=== PATIENT | female | born 1945 | race Caucasian/White ===

== ENCOUNTER → 2020-07-24 10:44 | Outpatient (CLI) | payer MEDICARE, OTHER, SELFPAY ==
[2020-07-23 13:58] VITALS: BMI 27.4
--- NOTE | 2020-07-24 | IMM_PTH ---
PATIENT: ARIELA SOLIS LOC: [facility] U#:[id number] AGE/SX: 79/F ROOM: RE07/24/[address]: Dr. Nico Oh MD : 1945 BED: DIS: SPEC #: [id number] RECD: 07/27/20 14:02 STATUS: ZEKE REQ #: [id number] ALBINO: 07/24/20 00:[address]: Nico Oh DEPT: IMMUNOHISTOCHEMISTRY RECD BY: Rosie Iniguez ENTERED: 07/27/20 14:04 SP TYPE: IMMUNO OTHR DR: Dr. Jorge A Lott MD Tissues: Right breast, NOS Procedures: CALPONIN-1 (add) CK5-6 (add) CK8 (add) E-CAD (add) HER2 FILEMON (add) KI-67 (add) P53 (add) DC (add) P40 (add) ER (initial) PHYSICIAN & INSTITUTION [place] [id number] SPECIMEN INFORMATION: Tissue Source: Right breast, 1 o'clock posterior depth microcalcifications, stereotactic core biopsy Clinical Info: Right breast, 1 o'clock posterior depth microcalcifications Specimen Number: [id number] #2 CPT code: 71968, 82269 x6, 13292 x3 METHODOLOGY: Deparaffinized sections of prefer/formalin-fixed tissue or PAP/DQ stained slides are incubated with monoclonal/polyclonal antibodies/oligonucleotide probes. Localization is made via biotin free immunoperoxidase method. Appropriate controls are performed and reacted as expected. Results on target cell population are indicated in the following table: RESULTS: ANTIBODY / CLONE RESULT Block 2 E-Cad (ECH-6) positive CK8 ([id number]) positive Calponin-1 (AC500A) negative * CK5-6 (D5 & 1684) negative * P40 (BC28) negative * P53 (DO-7) positive Ki-67 (30-9) positive, low *?Positive in the area of ductal carcinoma in situ. MORPHOMETRIC ANALYSIS ER (clone 6F11) >95%, strong intensity DC (clone 16/1E2) 0% Her-2Neu (clone CB11) 0 The prognostic test for HER2 is performed on formalin-fixed paraffin embedded tissue. A 3+ (positive) staining pattern is defined as intense, homogeneous, complete, circumferential membranous staining in >10% of contiguous tumor cells. A similar weak (2+) staining pattern is interpreted as equivocal. XANDER follow-up testing is recommended for all equivocal cases. Positivity/negativity for ER/DC is reported if > or < 1% of the tumor cells are immuno- reactive, respectively. The ASCO/CAP criteria is used for scoring. Reference: Journal of Clinical Oncology, 2013; 31:9418-9298 & 2010; 16:3563-3734. Duration of fixation: 56 Hrs; Sample Adequate: Yes. These assays have not been validated on decalcified tissues. Results should be interpreted with caution given the likelihood of false negativity on decalcified specimens. These tests were developed and their performance characteristics determined by [facility]. They may not have been cleared or approved by the U.S. Food and Drug Administration. The FDA has determined that such clearance or approval is not necessary. The above immunohistochemical/dualISH markers are ordered and reviewed by the Pathologist. 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 Positive for estrogen receptors (favorable prognostic indicator). Negative for progesterone receptors (unfavorable prognostic indicator). Negative for overexpression of RNG1jww. SJ:ze 07/28/20
--- NOTE | 2020-07-24 11:30 | BRBX_PTH ---
PATIENT: ARIELA SOLIS LOC: [facility] U#:[id number] AGE/SX: 79/F ROOM: RE07/24/[address]: Dr. Nico Oh MD : 1945 BED: DIS: SPEC #: [id number] RECD: 07/24/20 13:06 STATUS: ZEKE JACKIE #: [id number] ALBINO: 07/24/20 11:[address]: Nico Oh DEPT: SURGICAL PATHOLOGY RECD BY: Hugo Quintana ENTERED: 07/24/20 13:07 SP TYPE: BREAST BX OTHR DR: Dr. Jogre A Lott MD Tissues: Right breast, NOS Procedures: Surgery Specimen Level IV HEADER OPERATION: Right stereotactic breast biopsy PRE-OP DIAGNOSIS: Right breast 1 o'clock posterior depth microcalcifications TISSUE SUBMITTED: Right breast core tissue ISCHEMIC TIME: 3 minutes FIXATION TIME: 56 hours MICROSCOPIC DIAGNOSIS Right breast, 1 o'clock posterior depth microcalcifications, stereotactic core biopsy: Invasive ductal carcinoma, nuclear grade 1 (0.7 cm in greatest length). Focal ductal carcinoma in situ. See comment. JASPREET:ze 07/27/20 COMMENT Immunohistochemistry ([id number]) supports the above diagnosis. Ductal carcinoma in situ shows solid and cribriform pattern, nuclear grade 2/3 and focal microcalcifications. Ductal carcinoma in situ comprise about 30% of the total tumor volume. ER/HI/Hwk9mpq studies are being performed on sections of tumor and the results from this study will be reported separately ([id number]). MICROSCOPIC DESCRIPTION Slides are reviewed. GROSS DESCRIPTION Received in fixative is one container labeled with the patient name and designated right breast. The specimen consists of multiple elongated fragments of solano-yellow fibroadipose tissue that in aggregate measure 7.5 x 3 x 0.3 cm. The entire specimen is submitted in three cassettes. / JASPREET:ze 07/24/20 TC:0 CPT: 23426
--- NOTE | 2020-07-24 11:59 | PCM.OPRPT ---
Problem List (1) Microcalcification of right breast on mammogram Status: Acute Report of Operation Date of Procedure: 07/24/20 Pre-Operative Diagnosis: Microcalcifications right breast Post-Operative Diagnosis: Same Surgery/Procedure Performed:: Stereotactic right breast biopsy Type of Anesthesia:: Local Description of Procedure: Patient was brought into the mammography unit. Placed prone on the fissure table right breast was brought down through the opening. Cc view was obtained. Microcalcifications were identified. ?10 degrees views were obtained. I targeted on the microcalcifications. I prepped the breast with Betadine. I injected local. Skin rodger was made. Needle was placed in the prefire position 2 more stereo views were obtained showing the microcalcifications to be appropriately targeted. I fired the needle took 360 degree circumferential biopsies. X-rayed my specimen microcalcifications were present. Back the needle off 7 mm and placed a Gelfoam titanium clip. Needle was removed clip was identified on subsequent film. Steri-Strips were applied. Sterile dressings were applied. The patient tolerated the procedure well. Standard mammogram was obtained on the right side. Of interest she was due to get a left-sided mammogram which will be obtained today at the same time. - Admit VTE Documentation VTE Present on Admission: No VTE Mechan Device Prophylaxis: None VTE Pharm Prophylaxis ordered?: No Reason prophylaxis not ordered:: Treatment Not Indicated [id number]: [id number] [facility]
--- NOTE | 2020-07-24 12:03 | BI_ITS ---
MAMMOGRAPHY - BILATERAL SCREENING REASON FOR EXAM: Female, 74 years old. Routine annual screening examination. PERTINENT HISTORY: Non-contributory. Remote bilateral excisional breast biopsies. TECHNIQUE: Digital bilateral breast carri (3D mammographic acquisition) in the CC and MLO projections. 2-D mediolateral oblique (MLO) and craniocaudad (CC) views of both breasts were obtained. CAD: Full Field Digital Mammography with Computer Added Detection was performed. COMPARISON: Comparison is made with prior abdomen examination dated 05/07/2019. FINDINGS: Breast Composition: The breasts are heterogeneously dense, which may obscure small masses. There are no dominant masses or suspicious calcifications. Stable small bilateral benign-appearing axillary lymph nodes. No other significant abnormalities are identified. There has been no significant change since the prior study. BI/SCREEN MAMM (CAD) W/CARRI UNI L IMPRESSION: Stable bilateral screening mammogram. Yearly follow-up mammogram recommended. (A) ASSESSMENT CATEGORY: BIRADS Category 2: Benign. A letter regarding these results will be sent to the patient by the facility within 30 days. Approximately 10% of breast cancers are not detected by mammography. A normal mammogram should not delay biopsy of a clinically suspicious abnormality. [id number] Electronically Signed: Milton Yañez, at 14:13 EST , Service support ,
== END ==
PROVIDERS: PCP Internal Medicine; Referring Provider Surgery; Visit Provider Surgery
DX: D05.11 Intraductal carcinoma in situ of right breast (principal); Z12.31 Encounter for screening mammogram for malignant neoplasm of breast
CPT/HCPCS: 19081; 77063; 77067; 88305; 88341; 88342; J7050; A4648

== ENCOUNTER 2020-08-28 08:57 | Day surgery (SDC) | payer MEDICARE, OTHER, SELFPAY ==
[2020-08-28] VITALS (7 sets, daily range): BP systolic 138–173; BP diastolic 63–76; PULSE 58–70; RESP 16; TEMP 36.3–36.6; O2SAT 97–98; BMI 27.7
--- NOTE | 2020-08-28 | IMM_PTH ---
PATIENT: ARIELA SOLIS LOC: [facility] [place] U#:[id number] AGE/SX: 74/F ROOM: RE08/28/[address]: Dr. Nico Oh MD : 1945 BED: DIS: 08/28/2020 SPEC #: [id number] RECD: 09/02/20 13:18 STATUS: ZEKE REQ #: [id number] ALBINO: 08/28/20 00:[address]: Nico Oh DEPT: IMMUNOHISTOCHEMISTRY RECD BY: Rosie Iniguez ENTERED: 09/02/20 13:21 SP TYPE: IMMUNO OTHR DR: Dr. Jorge A Lott MD Tissues: A - Right breast, NOS C - Axillary lymph node, NOS D - Axillary lymph node, NOS Procedures: Calponin-1(initial) CALPONIN-1 (add) CK7 (add) Pankeratin (initial) Pankeratin (add) P40 (add) PHYSICIAN & [place] [id number] SPECIMEN INFORMATION: Tissue Source: A - Right breast lumpectomy, C - Right breast sentinel lymph node, D - Lymph node tissue right breast Clinical Info: Invasive ductal carcinoma right breast Specimen Number: [id number] A4-A7, C1, D1-D3 CPT code: 79145 x3, 53177 x13 METHODOLOGY: Deparaffinized sections of prefer/formalin-fixed tissue or PAP/DQ stained slides are incubated with monoclonal/polyclonal antibodies/oligonucleotide probes. Localization is made via biotin free immunoperoxidase method. Appropriate controls are performed and reacted as expected. Results on target cell population are indicated in the following table: RESULTS: ANTIBODY / CLONE RESULT Block A4 P40 (BC28) negative * Calponin-1 (UL905B) negative * Block A5 P40 (BC28) negative Calponin-1 (PM315D) negative Block A6 P40 (BC28) positive Calponin-1 (JQ120Y) positive Block A7 P40 (BC28) positive Calponin-1 (UE146M) positive Block C1 AE1-3 (AE1/AE3/PCK26) negative CK7 (OV-TL12/30) negative Block D1 AE1-3 (AE1/AE3/PCK26) negative CK7 (OV-TL12/30) negative Block D2 AE1-3 (AE1/AE3/PCK26) negative CK7 (OV-TL12/30) negative Block D3 AE1-3 (AE1/AE3/PCK26) negative CK7 (OV-TL12/30) negative *?Positive in the area of ductal carcinoma in situ and adenosis with atypia. These tests were developed and their performance characteristics determined by [facility]. They may not have been cleared or approved by the U.S. Food and Drug Administration. The FDA has determined that such clearance or approval is not necessary. The above immunohistochemical/dualISH markers are ordered and reviewed by the Pathologist. INTERPRETATION: A. Right breast, lumpectomy: Invasive ductal carcinoma. Ductal carcinoma in situ. Adenosis with atypia. C. [place] lymph node, biopsy: One lymph node, negative for metastatic carcinoma. D. Lymph node tissue, biopsy: Two out of two lymph nodes, negative for metastatic carcinoma. SJ:ze 09/03/20
--- NOTE | 2020-08-28 | BRBX_PTH ---
PATIENT: ARIELA SOLIS LOC: [facility] [place] U#:[id number] AGE/SX: 74/F ROOM: RE08/28/[address]: Dr. Nico Oh MD : 1945 BED: DIS: 08/28/2020 SPEC #: [id number] RECD: 08/28/20 12:08 STATUS: ZEKE REMendy #: [id number] ALBINO: 08/28/20 00:[address]: Nico Oh DEPT: SURGICAL PATHOLOGY RECD BY: Rosie Iniguez ENTERED: 08/28/20 13:55 SP TYPE: BREAST BX OTHR DR: Dr. Jorge A Lott MD Tissues: A - Right breast, NOS B - Right breast, NOS C - LYMPH NODE BIOPSY D - LYMPH NODE BIOPSY Procedures: Frozen Section (charge) Frozen Section Add'l ([facility]) Surgery Specimen Level IV Surgery Specimen Level V HEADER OPERATION: Stereotactic wire localization lumpectomy with sentinel lymph node biopsy PRE-OP DIAGNOSIS: Invasive ductal carcinoma right breast TISSUE SUBMITTED: A - Right beast lumpectomy, single long suture - superior, wire and skin - anterior, double long - lateral, B - Additional right breast tissue, double long suture - closest margin to breast tumor where guidewire is coming out, C - Right breast sentinel lymph node, FS at 1214, D - Lymph node tissue right breast, FS at 1229 FROZEN SECTION DIAGNOSIS C. [place] lymph node, biopsy: One lymph node, negative for metastatic carcinoma. D. Lymph node tissue, biopsy: Two out of two lymph nodes, negative for metastatic carcinoma. JASPREET:ze 08/28/20 MICROSCOPIC DIAGNOSIS A. Right breast, lumpectomy with needle localization: Invasive ductal carcinoma. Ductal carcinoma in situ. Adenosis with atypia. See cancer summary in the comment section. B. Additional right breast tissue: Adenosis and dense fibrosis. Focal microcalcifications. Negative for carcinoma. C. [place] lymph node, biopsy: One lymph node, negative for metastatic carcinoma. D. Lymph node tissue, biopsy: Two out of two lymph nodes, negative for metastatic carcinoma. JASPREET:ze 09/02/20 COMMENT BREAST CANCER SUMMARY Procedure - excision (lumpectomy with wire-guided localization) Specimen laterality - right Invasive tumor: Tumor site - 1 o'clock as per clinical information Tumor size - greatest dimension 0.7 cm. - Additional dimension - 0.5 x 0.5 cm Grossly, the tumor measures 1.5 cm in greatest dimension and consists of invasive carcinoma, ductal carcinoma in situ, adenosis with atypia and previous biopsy site. Histologic type - invasive ductal carcinoma, not otherwise specified. Histologic grade ([place] grade): Glandular/tubular differentiation score - 1 Nuclear pleomorphism score - 1 Mitotic count score - 1 Overall grade - grade 1 (score of 3) Tumor focality - single focus of invasive carcinoma. Ductal Carcinoma In Situ - present Positive for extensive intraductal component (EIC). Size (extent) of DCIS - DCIS comprise about 50% of the total tumor volume. Number of blocks with DCIS - 3 Number of blocks examined - 22 (including specimens A & B) Architecture pattern - solid and cribriform Nuclear grade - grade 2 (intermediate) Necrosis - present, central (expansive comedo necrosis) Lobular carcinoma in situ - not identified Tumor extension: Skin - Skin is present and free of tumor (gross only). Nipple - not applicable Skeletal muscle - no skeletal muscle is present. Margins - Ductal carcinoma in situ and invasive carcinoma are 0.8 cm away from the closest inferior margin. Regional Lymph Nodes: Total number of lymph nodes examined - 3 Number of sentinel lymph nodes examined - 1 Number of lymph nodes with macrometastases, micrometastases or isolated tumor cells - 0 Treatment effect - no known presurgical therapy. Lymphvascular invasion - not identified Additional Pathologic Findings - - extensive adenosis with focal atypia. - Focal dense fibrosis. - Changes consistent with previous biopsy site. Ancillary Studies: Previously performed on same tumor ([id number] / [id number]) ER: positive (>95%, strong intensity) ND: negative (0%) Eph0cnn: negative (0) Microcalcifications - present in ductal carcinoma in situ and non-neoplastic tissue. Clinical History - microcalcifications Pathologic Stage: pT1b pN0 pMx The above summary is in compliance with [employer] (CAP) Cancer Protocols Checklist and [place] [employer] Committee on Cancer (AJCC), Staging Manual, 8th Ed. Please make reference to previous specimen ([id number]) right breast, 1 o'clock posterior depth microcalcifications, stereotactic core biopsy with diagnosis of invasive ductal carcinoma and focal ductal carcinoma in situ. MICROSCOPIC DESCRIPTION Slides are reviewed. GROSS DESCRIPTION A - Received fresh for intraoperative consultation labeled with the patient's name and designated lumpectomy right breast with wire. The specimen consists of a piece of fibroadipose tissue with needle localization measuring 9.5 x 6 x 3.5 cm. A piece of skin is also noted measuring 1 x 0.3 cm. The specimen is oriented as follows: double long - lateral, single long - superior. The specimen is inked as follows: anterior - yellow, posterior - black, superior - blue, inferior - green, medial - red and lateral - orange. Serial sections reveal a solano, indurated tumor mass measuring 1.5 x 1 x 1 cm. This mass is 1 cm away from the closest inferior margin. This information is conveyed to the surgeon intraoperatively. Sections of the rest of the specimen reveal solano-yellow adipose cut surfaces mixed with solano-white fibrous areas. Vocational Aide sections are submitted in 12 cassettes as follows: 1 - perpendicular medial and lateral margins, 2 - perpendicular anterior, posterior and superior margins, 3-7 - tumor with closest inferior margin, 8-12 - Vocational Aide sections adjacent to and away from the tumor. Sections will be submitted after additional fixation. / SJ:ze 08/31/20 B - Received in fixative is one container labeled with the patient's name and designated additional right breast tissue. The specimen consists of a piece of fibroadipose tissue measuring 7 x 6 x 2 cm. The specimen is oriented as follows: double suture - closest margin to breast tumor where guidewire is coming out. This margin is inked black. Opposite margin is inked blue. Sections do not reveal any mass lesion and reveal yellow adipose cut surfaces mixed with fibrous areas. Vocational Aide sections are submitted in ten cassettes. Sections will be submitted after additional fixation. / : 08/31/20 C - Received fresh for frozen section diagnosis labeled with the patient's name is a specimen designated right breast sentinel lymph node. The specimen consists of a piece of solano-yellow adipose tissue measuring 2 x 2 x 0.7 cm. One nodule consistent with lymph node is identified. The lymph node measures 1 cm in greatest dimension. The lymph node is submitted in entirety for frozen section diagnosis in one cassette. / : 08/28/20 D - Received fresh for frozen section diagnosis labeled with the patient's name is a specimen designated lymph node tissue right breast. The specimen consists of two pieces of solano-yellow adipose tissue measuring 3 x 3 x 2 cm and 3 x 2 x 1 cm. Two lymph nodes are identified measuring 1.5 and 2.5 cm in greatest dimension. The lymph nodes are submitted in entirety for frozen section diagnosis as follows: 1??one bisected lymph node, 2 & 3 - one bisected lymph node. / : 08/28/20 TC:0 CPT: 42369 x3, 15146, 04592 x2, 23240 x2, 15130 ADDENDUM ADDENDUM ADDENDUM ADDENDUM ADDENDUM ADDENDUM ADDENDUM ADDENDUM 09/30/2020 10:26 ADDENDUM 09/30/2020 10:26 ADDENDUM 09/30/2020 10:26 ADDENDUM 09/30/2020 10:26 ADDENDUM 09/30/2020 10:26 An order for Oncotype testing was received from Dr. Mar. This necessitated case review, block and slide selection by pathologist at [facility]. Breast Cancer Recurrence Score = 22 Results of the complete Oncotype testing ([employer] report) are viewable in EMR under: Reports - Pathology - Lab Pathology Report, Scanned.
--- NOTE | 2020-08-28 08:00 | HP_ITS ---
Intake Intake Visit Reasons: ONE WEEK F/U RIGHT BREAST BIOPSY 07/24 Chief Complaint: discuss surgery Margarine Maker Required: No Is patient in pain?: No Allergies No Known Allergies Allergy (Verified 08/18/20 10:45) Medications denosumab 60 mg/mL subcutaneous syringe 60 mg SC [id number] 07/23/20 [History Confirmed 07/31/20] levothyroxine 88 mcg tablet 88 mcg PO DAILY 07/23/20 [History Confirmed 07/31/20] simvastatin 10 mg tablet 10 mg PO DAILY 07/23/20 [History Confirmed 07/31/20] Is last menstrual period known: No Post menopausal: Yes Patient : No PFSH Medical History Invasive ductal carcinoma of right breast (Acute) Abnormal mammogram (Acute) Degenerative joint disease (Acute) Hyperlipemia (Acute) Arthritis (Acute) Hypothyroidism (Acute) Thyroid disease (Acute) Surgical History Hx of right breast biopsy (Acute) Hx of colonoscopy (Acute) Hx of tubal ligation (Acute) Hx of appendectomy (Acute) Hx of tonsillectomy (Acute) S/P breast biopsy (Acute) Family History Mother Diabetes Hypertension Thyroid disorder Social History (Updated 08/18/20 @ 11:[address] Nico Oh MD) Smoking Status: Never smoker second hand exposure: No alcohol intake: never substance use type: does not use caffeine: Yes what type of physical activity do you participate in: aerobics frequency: 3-4 times per week HPI HPI Surgical H&P: Yes HPI: ARIELA SOLIS, is a 74 F who presents to the office today for Follow-up from a right stereotactic breast biopsy completed at [facility] on 07/24/2020. Patient underwent a right stereotactic breast biopsy for microcalcifications located at the 1 o'clock position. This showed invasive ductal carcinoma nuclear grade 1. It was estrogen receptor positive HER-2/noreen negative. She has seen Dr. Cutler her oncology doctor and would like to discuss her surgical options. ROS General General: No weight change, appetite, fatigue, colon cancer, breast cancer or weakness HEENT HEENT: No difficulty swallowing, eye injury, eye surgery, swollen glands or hoarseness Endo Endocrine: Yes thyroid disease; no diabetes mellitus, thyroid cancer, Hair loss, heat intolerance or cold intolerance Skin Skin: No rash or changing moles Breast Breast: No nipple discharge Musc Musculoskeletal: Yes arthritis; no back problems, rheumatoid arthritis, gout or joint pain Cardio Cardiovascular: No murmur, pacemaker, heart disease, atrial fibrillation, high blood pressure, heart attack, heart stent, palpitations, shortness of breat with exertion or chest pain Psych Psychiatric: No depression, anxiety or hearing voices Resp Respiratory: No shortness of breath, No sleep apnea, No cough, No COPD, No asthma, No emphysema, No wheezing Gastro Gastrointestinal: No abdominal pain, No nausea or vomiting, No diarrhea, No constipation, No blood in stool, No acid reflux, No hemorrhoids, No ulcers, No gallbladder problem, No black,tarry stools Aldo Hematologic: No blood thinners, No blood disorders, No bleeding, No anemia, No blood clots Neuro Neurologic: No system reviewed and no additional complaints, except as docu, No as per HPI, No abnormal walking, No abnormal hearing, No abnormal movements, No abnormal speech, No behavioral changes, No burning sensations, No confusion, No seizure-like activity, No unsteadiness, No dizziness, No localized weakness, No frequent falls, No headache(s), No lack of coordination, No loss of vision, No memory loss, No numbness, No other visual disturbances, No radiating pain, No restless legs, No sensory deficit, No fainting, No tingling, No tremor(s), No weakness, No other Exam Const General: no acute distress, well developed, well hydrated Orientation: oriented to person, oriented to place, oriented to time [facility] Head: normocephalic, atraumatic Ears: external ears normal Mouth: moist mucous membranes Eyes Sclera: sclerae normal Pupils: normal by confrontation Neck Neck: no lymphadenopathy noted Neck mass: No Thyroid: thyroid normal, symmetrical Chest Chest palpation & inspection: normal inspection of the chest Breast inspection: normal inspection of the breasts Breast Palpation: No nipple discharge Other: Palpation of the right breast reveals Biopsy site with minimal bruising no signs of cellulitis. Palpation of the left breast reveals No hard palpable abnormalities. Axillary exam demonstrates no suspicious masses in either the left or right axilla. Resp Effort & Inspection: normal respiratory effort Auscultation: clear to auscultation bilaterally Percussion: percussion normal Cardio Rate: regular rate Rhythm: regular rhythm Heart Sounds: no murmurs GI Palpation: soft, no hepatosplenomegaly, no masses, nontender Rectal Exam: other Other: Rectal exam deferred. Extrem General: normal to inspection, no clubbing, cyanosis or edema Assessment & Plan Problems 1. Invasive ductal carcinoma of right breast C50.911 Plan I have given the patient options for initial surgical treatment. Options are the following: lumpectomy followed by radiation therapy vs. mastectomy vs. mastectomy followed by immediate reconstruction. I have described the procedures to the patient. I have described the advantages and disadvantages of the options, but I have told the patient that among the options, the survival rate for breast cancer is the same. I have told the patient that with all the surgeries that a sentinel lymph node biopsy is required. I have described the procedure of sentinel lymph node biopsy to the patient. I have told the patient that if the biopsy is positive for metastatic disease, then a full axillary lymph node dissection is required. I have told the patient that adjuvant chemotherapy will be required should the lymph nodes reveal metastatic disease. Also, a full lymph node dissection will increase the risk for lymphedema, especially if there are 4 or more lymph nodes positive for metastatic disease and radiation to the axilla is also required. I have told the patient the risks of surgery, including but not limited to: infection, bleeding, scar tissue, seroma and persistent seroma, lymph leak, injury to any blood vessels, injury to any nerves (particularly the long thoracic, the thoracodorsal, and the second intercostal brachial and the resultant sequelae), lymphedema, cosmetic deformity, dysesthesias, wound infections, further surgery (especially if margins are not clear), complications of anesthesia, etc. the patient understands. The patient will think about the options and discuss it further with the family. The patient will contact me in the next few days when she decides what the patient wishes to do. I have answered all the patient?s questions at this point to her satisfaction and she has no further questions. Patient is going to undergo a stereotactic localization sentinel lymph node biopsy with lumpectomy. Coding Level of Care Code Off vis,est,level 3 Diagnoses Invasive ductal carcinoma of right breast C50.911 COVID (Procedure Consent) Procedure Criteria Procedure Criteria: Yes Elective The surgeon/proceduralist and patient have discussed in detail the risk of exposure to and/or potential harm posed by the COVID-19 virus with having a surgery/procedure at this time versus the risk of? delaying the surgery/procedure. It is not possible to know either the risk of delaying the surgery or procedure or chance of getting an infection with perfect accuracy, but a joint decision was made between the patient and the surgeon/proceduralist ?to proceed at this time with the scheduled surgery/procedure as indicated on the consent form. I have re-examined the patient. There are no clinical changes since date of exam.
--- NOTE | 2020-08-28 09:00 | NM_ITS ---
PROCEDURE: NUCLEAR MEDICINE Injection [place] Node - RIGHT breast(s). REASON FOR EXAM: Female, 74 years old. Right breast cancer. TECHNIQUE: [place] node localization using radionuclide methods of the RIGHT breast(s) was performed following subcutaneous administration of 1.1 mCi of of sulfur colloid Tc-99m. FINDINGS: 1.1 mCi of technetium labeled sulfur colloid was injected subcutaneously in 4 equal aliquots in the periareolar region. NM/Lymph Node Injection Only IMPRESSION: Subcutaneous injection of 1.1 mCi of technetium labeled sulfur colloid in the periareolar region. Electronically Signed: Milton Yañez, at 11:18 EST , Service support ,
[2020-08-28] MEDS: Lactated Ringers 1,000 ML 100 ML IV (09:33)
--- NOTE | 2020-08-28 10:00 | BI_ITS ---
SURGICAL BREAST SPECIMEN RADIOGRAPH CLINICAL: Document presence of tissue clip marker in biopsy specimen. FINDINGS: Specimen shows presence of tissue clip marker. Electronically Signed: Milton Yañez, at 12:46 EST , Service support , BI/Breast Biopsy Specimen
--- NOTE | 2020-08-28 10:58 | PCM.DC.BS ---
Discharge Diet: No Restrictions Discharge Activity: May Not Drive - for 2-3 days or while taking narcotic pain meds. May shower in (days): 1 Lifting Restrictions: 10 pounds for 1 week. Call your doctor if your incision/area has: Continuous Slow Oozing, Sudden Increased Bleeding Call your doctor if you observe: Fever of 101 or Higher Suture Line Care: Avoid Pulling/Pushing, Avoid Pinching/Bending Remove Dressing in (days):: 1 - Remove bulky dressing tomorrow. May leave any opsite dressing for 3-4 days. Keep dressing in place until your follow-up appointment. Additional Dressing/Incision Instructions:: Remove bulky dressing tomorrow. May leave any opsite dressing for 3-4 days. Keep dressing in place until your follow-up appointment. Allergies/Adverse Reactions: Allergies No Known Allergies Allergy (Verified 08/25/20 10:13) Medications to take at Discharge denosumab 60 mg/mL subcutaneous syringe 60 mg SC [id number] 07/23/20 levothyroxine 88 mcg tablet 88 mcg PO DAILY 07/23/20 simvastatin 10 mg tablet 10 mg PO DAILY 07/23/20 Oxycodone HCl/Acetaminophen [Percocet 5/325] 1 - 2 tablet PO Q4H PRN PRN 6 Days #30 tablet 08/28/20 The following prescriptions were given: Oxycodone HCl/Acetaminophen [Percocet 5/325] 1 - 2 tablet PO Q4H PRN PRN 6 Days #30 tablet PRN Reason: Pain Transmission Status: Sent to [id number] Primary Care Physician: Jorge A Lott MD [Primary Care Provider] -
--- NOTE | 2020-08-28 10:59 | PCM.OPRPT ---
Problem List (1) Invasive ductal carcinoma of right breast Status: Acute Report of Operation Date of Procedure: 08/28/20 Pre-Operative Diagnosis: Invasive ductal right breast cancer Post-Operative Diagnosis: Same Surgery/Procedure Performed:: 1. Stereotactic wire localization of invasive right breast cancer. 2. Wire local lumpectomy right breast. 3. Injection of 5 cc of Lymphazurin blue. 4. Right breast sentinel lymph node biopsies Type of Anesthesia:: General Estimated Blood Loss (mL): <25 cc Description of Procedure: Patient was brought into the stereotactic unit placed in the prone position on the fissure table. Right breast was brought down through the opening. Cc view was obtained. Clip was identified. Posterior -15 degrees views were obtained. I targeted on the clip. I prepped the breast with Betadine. I injected 1% lidocaine plain. Kopan's wire was then placed in 2 more stereo view showing the clip to be adequately targeted with a needle. Needle was removed leaving the guidewire in place. 2 more mammographic views in the CC and the lateral position were obtained. Sterile dressings were applied and she was then transferred to the operating room. Under excellent endotracheal intubation I sterilely injected 5 cc of Lymphazurin blue circumareolar Alexandre around the nipple. The right breast and axilla was then sterilely prepped and draped in the usual fashion. I made an elliptical incision around the previous biopsy site and extended my incision both medially and laterally I dissected down and cut the guidewire into my specimen with electrocautery I was able to remove the specimen without difficulty. I sent to x-ray clip was identified. There was some nodularity on the lateral aspect of my biopsy cavity I remove this in place a suture on the tissue that was closest to the specimen that was removed. Electrocautery was used for good in the stasis. I packed the wound. I then went into the axilla injected local made an incision used electrocautery to get down to the clavipectoral fascia entered this identified a blue lymph node but it was weakly blue. None of the lymph nodes that I was I seen or palpating had any activity on the [place] counter. I removed 3 lymph nodes with the use of the harmonic dissector. I irrigated out the wound good in the stasis. I closed this with subcu of 2-0 Vicryl deep dermals with 3-0 Vicryl in a running 4-0 Monocryl. In the biopsy cavity it was irrigated out I closed it with subcu of 2-0 Vicryl deep dermals of 3-0 Vicryl and then a running 4-0 Monocryl. Dermabond was applied to both of these sterile dressings were applied and the patient tolerated the procedure well. Frozen sections on the lymph nodes confirm lymph nodes and were negative. - Admit VTE Documentation VTE Present on Admission: No VTE Mechan Device Prophylaxis: SCD's VTE Pharm Prophylaxis ordered?: No Reason prophylaxis not ordered:: Treatment Not Indicated [id number]: [id number] Partial mastectomy - +[id number], [id number], [id number]
[2020-08-28] MEDS: Cefazolin 2 GM in 0.9% Normal Saline 100 ML IV (11:25)
[2020-08-28] MEDS: Isosulfan Blue 1% 5 ML Vial (11:45)
[2020-08-28] MEDS: Bupivacaine Mpf 0.5% 30 ML VIAL (11:50)
== END 2020-08-28 15:07 | disposition home or self-care (01) ==
LOC: SDC 08:58 → AC 08:58
PROVIDERS: PCP Internal Medicine; Referring Provider Surgery; Visit Provider Surgery
PROC: 0HBV0ZZ Excision of Bilateral Breast, Open Approach (ICD-10-PCS; CPT 19302; principal; 2020-08-28 11:15)
DX: C50.911 Malignant neoplasm of unspecified site of right female breast (principal); Z17.0 Estrogen receptor positive status [ER+]
CPT/HCPCS: 00400; 19301; 38525; 19281; 38792; 76098; 87426; 88305; 88307; 88331; 88332; 88341; 88342; A9541; C9803; J7120; A4216; Q9968

== ENCOUNTER 2022-10-28 08:30 | Outpatient (RCR) | payer MEDICARE, OTHER, SELFPAY ==
--- NOTE | 2022-10-14 08:52 | HP.PTEVAL ---
Patient's Visit Information ARIELA SOLIS is a 76 year old F referred to Physical Therapy by Dr. Tam Molina MD with a diagnosis of R hip OA, bursitis. Date of Evaluation: 10/14/22 Physical Therapist: DARYL PiersonT, OCS, CSCS - Visit Plan Frequency: 3x /Week Duration: 4-6 Weeks Plan: 3x/week for 4-6 weeks around a vacation in two weeks. Please focus rollout and strtch R>L ITB and quad/psoas aggressively(pt stretching these at home), leg pullNWB strength to R hip (needs more hip extension)progrressing to WB as tolerated. Work on step length in gait. TENS R hip lateral if needed. - Subjective R hip has bone spur and OA. It feels like it locks up at times and feels weak going up two steps with anything in hand. Was limping and painful for a while. It has been hurting for several months on and off. Not sure why it started. Improving lately. Gave meds and just picked it up yesterday.Stiff and sore if sits too long. Pain and stiffness is lateral at R hip. Sleep is not interrupted, sleeps all over. Usually on side. Not employed. spends day: volunteering and housework adn ex classes and walking when whether good. She has not stopped any of them. Will class is not a problem nor is ellitical, main problems no strength up steps. aS well as stiffness if sits too long. To [place] in about two weeks. - Pain R hip Pain Intensity (Out of 10): 0 Pain Intensity Range: 4, 7 - Objective Gait is hunched slightly adn avoids hip extension on both hips. I. Trasnfers I bed and chair. steps reciprocal with rail. Weakness on R descending. Tender over r GT. reflexes 2/3 patella and achilles. Sensation WNL to gross light touch in LE. strength is 4- hip flexiona dn rotations, 3+ abd and extension B hips. knees and ankles arre 4+. AROM B hip extension barely neutral, flexion, abd, rotations symmetircal and WFL. - GALO, - FADDIR, - scour. LB aROM wFL. - Balance/Special Test Scores Lower Extremity Functional Score: 52 - Goals Goal 1:: 5 degrees R hip extension without pain Goal Time Frame: 4-6 Weeks Goal 2:: Walk without hunching over Goal Time Frame: 4-6 Weeks Goal 3:: Pain in hip with stagnant and steps 1/10 at worst and 90% better Goal Time Frame: 4-6 Weeks Goal 4:: I management of condition Goal Time Frame: 4-6 Weeks Goal 5:: LEFS 56 Goal Time Frame: 4-6 Weeks - Rehabilitation Potential Physical Therapy Diagnosis: R hip OA and stiffness creating pain. Rehabilitation Potential: Fair - Anticipated Interventions Patient/Client Instruction: Educate patient on: Condition, Plan of Care For the Purpose of:: To decrease pain, To increase ROM, To improve muscle performance and motor function, To increase tolerance to activity/condition/position Therapeutic Exercise to Include: Strength training, Flexibilty training, Passive ROM, Active ROM For the Purpose of:: To decrease pain, To increase ROM, To improve muscle performance and motor function, To increase tolerance to activity/condition/position Manual Therapy Techniques to Include: Mobilization, Passive ROM, Soft tissue mobilization For the Purpose of:: To increase ROM, To improve nutrient delivery to tissue TENS: Yes Thermo therapy (hot pack): Yes For the Purpose of:: To decrease pain, To increase ROM, To improve nutrient delivery to tissue Thank you for the opportunity to evaluate your patient. For Medicare and Medicare HMO plans, please review the plan of care and approve it. It will need to be FAXED BACK to us at [phone] for Medicare purposes. For Medicare only, by signing this I certify the plan of care. Please let me know if there are questions or concerns regarding this plan of care. Physician Signature: Date:
--- NOTE | 2022-10-28 09:12 | HP.PTDCSUM ---
It has been my pleasure to treat ARIELA SOLIS referred by Dr. Tam Molina MD, with the diagnosis of R hip OA, bursitis for a total of 7 visit(s). Discharge Date: 10/28/22 Please see the following information for a summary of their discharge status. Subjective: Leaves on vacation to [facility] tomorrow. Hip is good. No pain for a while. Catchy thing is doing well. I will do my part at home R hip Pain Intensity (Out of 10): 0 % Improvement: 90 Objective/Function: 7 degrees hip extension R. Walking without antalgia or hunching today. Steps reciprocal without pain but whole body feels stiff. Doing well overall Goal 1:: 5 degrees R hip extension without pain Goal Progress: Goal Met Goal 2:: Walk without hunching over Goal Progress: Goal Met Goal 3:: Pain in hip with stagnant and steps 1/10 at worst and 90% better Goal Progress: Goal Met Goal 4:: I management of condition Goal Progress: Goal Met Goal 5:: LEFS 56 Goal Progress: Progressing Plan: d/c Discharge Comments: Pt to contact doctor if pain returns. If there are questions or concerns regarding this patient's physical therapy, please feel free to call me at [phone]. Thank you for the referral of this patient. Sincerely, Lev Strong, DPT, OCS, CSCS Balance/Gait/Functional tests - Balance/Special Test Scores Lower Extremity Functional Score: 62
== END 2022-10-28 10:24 | disposition home or self-care (01) ==
LOC: PT 08:30
PROVIDERS: PCP Internal Medicine; Referring Provider Specialist; Visit Provider Specialist
DX: M70.61 Trochanteric bursitis, right hip (principal); M16.11 Unilateral primary osteoarthritis, right hip
CPT/HCPCS: 97110; 97140; 97161; 97164

== ENCOUNTER 2024-06-13 09:20 | Emergency (ER) | payer MEDICARE, OTHER, SELFPAY ==
[2024-06-13 09:21] VITALS: BP 152/61; PULSE 62; RESP 14; TEMP 36.6; O2SAT 97; BMI 28.1
--- NOTE | 2024-06-13 09:51 | EDS_ITS ---
HPI History of Present Illness Chief Complaint: Chest Other Informant: patient Narrative Narrative: Presents to the ED after she reviewed my chart and saw her EKG noted left bundle branch block from her doctor's office 2 days ago. She has been have intermittent lightheaded symptoms for the last week. No chest pains no heaviness. No dyspnea. No recent vomiting or diarrhea. She had a PCP visit 2 days ago saw the practitioner. She states EKG was ordered and was told it was normal. She had labs drawn stating it was normal. This morning had transient numbness in both legs that resolved after walking. She has had no falls or syncopal episodes. No cardiac history. No cough. However she states she looked up left bundle branch block reporting it can cause lightheaded symptoms therefore came here. PFSH [facility] Medical History Invasive ductal carcinoma of right breast Abnormal mammogram Degenerative joint disease Hyperlipemia Arthritis Hypothyroidism Thyroid disease Home Medications ?Medication ?Instructions ?Recorded ?Last Taken ?Type denosumab 60 mg/mL subcutaneous 60 mg subcut [id number] 07/23/20 Unknown History syringe (Prolia) levothyroxine 88 mcg tablet 88 mcg PO DAILY 07/23/20 Unknown History (Synthroid) simvastatin 10 mg tablet 10 mg PO DAILY 07/23/20 Unknown History Allergy/AdvReac Type Severity Reaction Status Date / Time No Known Allergies Allergy Verified 06/13/24 09:20 Family History Mother Diabetes Hypertension Thyroid disorder Surgical History (Updated 09/29/20 @ 13:[address] Nico Oh MD) History of lymph node biopsy (~08/2020) History of lumpectomy of right breast (~08/2020) Hx of right breast biopsy Hx of colonoscopy Hx of tubal ligation Hx of appendectomy Hx of tonsillectomy S/P breast biopsy Social History (Updated 09/04/20 @ 09:[address] Nico Oh MD) Smoking Status: Never smoker second hand exposure: No alcohol intake: never substance use type: does not use caffeine: Yes what type of physical activity do you participate in: aerobics frequency: 3-4 times per week ROS ROS ED Constitutional Constitutional ED: Denies chills, fever(s) or sweats Eyes Eyes: Denies change in vision ENT ENT ED: Denies dysphagia or sore throat Cardiovascular Cardiovascular: Reports other Details: Intermittent lightheaded symptoms. ; Denies chest pain, leg edema, palpitations or racing heartbeat Respiratory/Chest Respiratory/Chest: Denies cough, dyspnea or dyspnea on exertion Gastrointestinal Gastrointestinal: Denies abdominal pain, diarrhea, nausea or vomiting Genitourinary Genitourinary ED: Denies dysuria, hematuria or urinary frequency Musculoskeletal Musculoskeletal: Denies back pain, extremity pain or neck pain Integumentary Denies rash or wounds Neurologic Neurologic: Reports paresthesias; Denies headache(s) or weakness EXAM Physical Exam Const Vital Signs: 06/13/24 09:21 06/13/24 09:42 06/13/24 11:30 Temperature 97.8 F 97.4 F L Temperature Source Temporal Oral Pulse Rate 62 62 Respiratory Rate 14 19 H Respiratory Effort Normal Non-Labored Blood Pressure 152/61 H 129/56 H Blood Pressure Mean 91 80 Pulse Ox 97 98 Oxygen Delivery Method Room Air Room Air 06/13/24 12:12 Temperature 98.1 F Temperature Source Pulse Rate 64 Respiratory Rate 17 Respiratory Effort Blood Pressure 136/54 H Blood Pressure Mean 81 Pulse Ox 100 Oxygen Delivery Method Positive well nourished and well developed General Appearance ED: well developed and NAD HEENT Reports moist mucous membranes normocephalic and atraumatic Eyes EOMs intact bilaterally and conjunctivae normal General Eye ED: Yes normal appearance of both eyes Neck no lymphadenopathy and supple General: Negative for tenderness Chest Wall Chest: Negative for tenderness Resp normal respiratory effort and normal air movement Effort and Inspection: symmetric chest movement; Negative for respiratory distr ess Cardio regular rate, regular rhythm and no murmurs Peripheral Pulses: pulses 2+ throughout GI normal to inspection, nondistended, normoactive bowel sounds and non-tender Palpation: Negative for guarding or rebound tenderness present Back/Spine no CVA tenderness and no thoracic nor lumbar tenderness Extremity normal to inspection General Extremety ED: Negative for edema or tenderness General Extremity: Negative for edema Neuro oriented x3 and no sensory deficits noted Sensorium / Orientation: awake and alert Skin no rashes or lesions noted and no wounds MDM MDM MDM Narrative Medical decision making narrative: Interventions / MDM: Differential diagnosis: Left bundle branch block, near syncope Diagnosis considered but do not suspect: N/A My EKG interpretation: Sinus, left bundle branch block normal rate. No ST or T wave changes. Imaging independently reviewed and interpreted by myself: 1 view chest x-ray no acute process. External documents reviewed: N/A Test considered but not ordered:N/A ED course: Patient asymptomatic left bundle branch block. Intermittent lightheaded symptoms. No focal neurological deficits. EKG confirms a left bundle branch block. Labs cardiac enzyme obtain along with chest x-ray. She denied recent vomiting or diarrhea. Labs are all stable with normal potassium. Creatinine 0.84 troponin 5. She is ambulated in department with no return of symptoms. I did discuss with her PCP Dr. Lott with her new left bundle branch block with no angina symptoms. Discussed patient was requesting stress test with her needed echocardiogram for her new left bundle branch block as an outpatient. He will follow-up with her. This was discussed with the patient. All questions were answered. Re-evaluation: stable Disposition discussed with patient/family/significant other: Patient Case discussed with consulting clinician: PCP This note was generated with [employer] dictation software. It may contain incorrect words, spelling, and punctuation that were not noted in checking the note before signing. Lab Data Attestation: I reviewed the patient's lab results. Labs: Laboratory Results - last 24 hr 06/13/24 10:00 WBC 4.9 RBC 4.47 Hgb 12.8 Hct 39.7 MCV 88.8 MCH 28.6 MCHC 32.2 RDW Std Deviation 45.0 H RDW Coeff of Sherita 13.8 Plt Count 172 MPV 9.1 Immature Gran % (Auto) 0.600 Neut % (Auto) 69.1 Lymph % (Auto) 18.7 L [place] % (Auto) 9.4 Eos % (Auto) 1.8 Baso % (Auto) 0.4 Absolute Neuts (auto) 3.4 Absolute Lymphs (auto) 0.91 Nucleated RBC % 0 Sodium 142 Potassium 3.9 Chloride 110 H Carbon Dioxide 29.0 Anion Gap 3 L BUN 14 Creatinine 0.84 Estim Creat Clear Calc 56.29 Est GFR (MDRD) Af Amer 85 Est GFR (MDRD) Non-Af 70 BUN/Creatinine Ratio 16.7 Glucose 131 H Calcium 8.9 Troponin I High Sens 5 Radiography Diagnostic Testing: Clinical Impression(s) from Imaging Studies Chest X-Ray 06/13/24 10:05 IMPRESSION: Minimal increased markings at the left lung base suggestive of linear atelectasis and/or scarring. Electronically Signed: iMlton Yañez MD at 10:53 EDT , Discharge Plan Triage Chief Complaint: Chest Other ED Provider: Jose Monteiro Dx/Rx/DC Orders Clinical Impression: Near syncope, Complete left bundle branch block Instructions: Left Bundle Branch Block, ED Near-Fainting, Uncertain Cause Prescriptions: No Action levothyroxine [Synthroid] 88 mcg tablet 88 mcg PO DAILY simvastatin 10 mg tablet 10 mg PO DAILY Prolia 60 mg/mL syringe 60 mg SC [id number] Primary Care Provider: Jorge A Lott Referrals: Jorge A Lott MD [Primary Care Provider] - 3-5 Days Activity Restrictions/Additional Instructions: Electrolytes and cardiac enzymes negative. EKG does note a left bundle branch block. I discussed with Dr. Lott in the emergency room. Further testing can be done as an outpatient for your left bundle branch block. Call for follow-up with him. Print Language: Latvian Disposition Disposition: Home, Self Care Discharge Date/Time: 06/13/24 12:13
[2024-06-13] MEDS: 0.9% Normal Saline (500mL Bag) 500 ML 1000 ML IV (10:03)
--- NOTE | 2024-06-13 10:05 | RAD_ITS ---
STUDY: X-RAY CHEST REASON FOR EXAM: Female, 78 years old. lbbb TECHNIQUE: Single AP portable view of the chest. COMPARISON: None. FINDINGS: EKG electrodes are seen. Minimal increased markings at the left lung base suggestive of linear atelectasis and/or scarring. There is no demonstrated pleural abnormality. Normal size heart. Normal mediastinum and ed. Normal visualized pulmonary arteries. There is atherosclerotic calcification of the aortic arch with tortuosity. There are diffuse degenerative changes of the visualized thoracic spine. Dextroscoliosis. Normal visualized ribs, clavicles, and shoulders. There is no demonstrated abnormality of the visualized soft tissue structures of the upper abdomen. RAD/Chest 1 View (Portable) IMPRESSION: Minimal increased markings at the left lung base suggestive of linear atelectasis and/or scarring. Electronically Signed: Milton Yañez MD at 10:53 EDT ,
[2024-06-13 10:22] LABS: Absolute Lymphocyte Count 0.91 X10^3/uL (0.83-4.51); Absolute Neutrophil Count 3.4 X10^3/uL (2.0-7.7); Basophil# 0.02 X10^3/uL; Basophil% 0.4 % (0-1); Eosinophil# 0.09 X10^3/uL; Eosinophils% 1.8 % (0-5); Hematocrit 39.7 % (37-47); Hemoglobin 12.8 g/dL (12.0-15.0); Lymphocyte # 0.91 X10^3/ul (0.83-4.51); Lymphocyte % 18.7 % (19-41); Mean Corp Hgb Conc 32.2 g/dL (32-36); Mean Corpuscular Hgb 28.6 pg (27.0-32.0); Mean Corpuscular Volume 88.8 fL (81-99); Mean Platelet Vol. 9.1 fl (6.2-12.0); Monocyte# 0.46 X10^3/uL; Monocyte% 9.4 % (0-10); NRBC Flagged by Analyzer 0 % (0-5); Neutrophil # 3.36 X10^3/uL (2.7-7.7); Neutrophil % 69.1 % (47-70); Platelet Count 172 K/mm3 (150-450); RBC Distribution Width CV 13.8 % (11.6-14.6); Red Blood Count 4.47 M/mm3 (4.2-5.4); White Blood Count 4.9 K/mm3 (4.4-11.0)
[2024-06-13 10:37] LABS: Anion Gap 3 (5-15); BUN 14 mg/dL (7-18); BUN/Creat Ratio 16.7 RATIO (10-20); Calcium,Total 8.9 mg/dL (8.5-10.1); Chloride 110 mmol/L (98-107); Creatinine, Serum 0.84 mg/dL (0.55-1.02); EST Glomerular Filtration Rate 70 mL/min (>60); Est Glom Filt Rate - Afr Amer 85 mL/min (>60); Estimated Creatinine Clearance 56.29 ml/min; Glucose 131 mg/dL (74-106); Potassium 3.9 mmol/L (3.5-5.1); Sodium Level 142 mmol/L (136-145); Troponin-I HS 5 pg/mL (3.0-54.0)
[2024-06-13 11:30] VITALS: BP 129/56; PULSE 62; RESP 19; TEMP 36.3; O2SAT 98
[2024-06-13 12:12] VITALS: BP 136/54; PULSE 64; RESP 17; TEMP 36.7; O2SAT 100
== END 2024-06-13 12:13 | disposition home or self-care (01) ==
PROVIDERS: Emergency Provider Emergency Medicine; PCP Internal Medicine; Visit Provider Emergency Medicine
DX: R55 Syncope and collapse (principal); E78.5 Hyperlipidemia, unspecified; R42 Dizziness and giddiness; I44.7 Left bundle-branch block, unspecified; R20.2 Paresthesia of skin; R07.89 Other chest pain
CPT/HCPCS: 71045; 80048; 84484; 85025; 93005; 96360; 99284; J7040

== ENCOUNTER 2024-12-13 06:01 | Day surgery (SDC) | payer MEDICARE, OTHER, SELFPAY ==
--- NOTE | 2024-12-10 13:11 | PAT.ANE_ITS ---
Pre-Assessment Diagnosis/Proposed Procedure Planned Operative Procedure(s): (R) Right foot first metatarsophalangeal joint fusion with hammertoe correction fo the second, third, fourth, and fifth digits. 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 When Was Last Pacemaker Check QUESTION #4 FULL TEXT: You/Your Family Experience fever (hyperthermia) with Anesthesia Last Oral Intake Last Oral intake: Last Oral Intake NPO since Meds taken in AM with sips of water? Meds patient instructed to take am of surgery PONV PONV - risk consulting treasury director: PONV - risk consulting treasury director Female Yes 12/09/24 09:25 HX of Motion Sickness No 12/09/24 09:25 HX of N/V After Surgery No 12/09/24 09:25 Non-Smoker Yes 12/09/24 09:25 Duration of Surgery greater Yes 12/09/24 09:25 than 60 minutes Number of Risk Factors 3 12/09/24 09:25 PONV Score Moderate Risk 12/09/24 09:25 Height & Weight Height & Weight: Anesthesia: Height & Weight Height 5 ft 4 in 06/13/24 09:21 Respiratory Assessment Respiratory Assessment - risk consulting treasury director: Respiratory Tract Infection Hx - risk consulting treasury director Hx Respiratory Tract Infection No 12/09/24 09:25 STOP Sleep Apnea STOP Sleep Apnea - risk consulting treasury director: STOP Sleep Apnea - risk consulting treasury director Hx Hypertension No 12/09/24 09:25 Hx Sleep Apnea No 12/09/24 09:25 CPAP BIPAP Do you snore loudly (louder No 12/09/24 09:25 than talking or can be heard Do you often feel tired/ No 12/09/24 09:25 fatigued/ sleepy during daytime? Has anyone observed you stop No 12/09/24 09:25 breathing during sleep? STOP Results Negative 12/09/24 09:25 QUESTION #5 FULL TEXT : Do you snore loudly (louder than talking or can be heard through closed doors)? Tobacco Use History Tobacco Use History - risk consulting treasury director: Tobacco Use History - risk consulting treasury director Tobacco Use Smoking Status Never smoker 12/09/24 09:25 Hx Tobacco Use No 12/09/24 09:25 Years Smoking Packs Smoked per Day Smoking Cessation Date was within the last 15 years Hx Smoking Cessation Date Hx Smoking Cessation Counseling Hematologic Medial History Hematologic Hx - risk consulting treasury director: Hematologic Medical Hx - documentation supervisor Hx of Blood Transfusion No 12/09/24 09:25 Hx of Transfusion in last 3 No 12/09/24 09:25 Months Date of Last Transfusion (if within last 3 months) Ever experience any problems No 12/09/24 09:25 with transfusion(s)? Specify any problems Hx of Preganancy in last 3 No 12/09/24 09:25 Months Nurse Filling Out Transfusion VCHRISTIN 12/09/24 09:25 & Questions: Date: 12/09/24 12/09/24 09:25 Time: 12/09/24 09:25 Patient unable to answer at this time (ie. confused, unrespo /Reproduction History /Reproductive History - risk consulting treasury director: /Reproductive Hx- risk consulting treasury director Hx Now Gestational Age (in weeks): EDC: Hx Hx Para Hx Section SAB PFSH Medical History (Updated 12/09/24 @ 09:25 by Yara Barkley) Wears glasses Post-menopausal Cancer History of steroid therapy Non-smoker History of echocardiogram Fatigue LBBB (left bundle branch block) Osteoporosis Invasive ductal carcinoma of right breast Abnormal mammogram Degenerative joint disease Arthritis Hypothyroidism Thyroid disease Home Medications ?Medication ?Instructions ?Recorded ?Last Taken ?Type denosumab 60 mg/mL subcutaneous 60 mg subcut [id number] 07/23/20 Unknown History syringe (Prolia) levothyroxine 88 mcg tablet 88 mcg PO DAILY 07/23/20 U nknown History (Synthroid) simvastatin 10 mg tablet 10 mg PO DAILY 07/23/20 Unkn own History calcium carb-ergocalciferol (vit 1 tab PO DAILY Unknown History D2) 600 mg calcium-200 unit tablet cholecalciferol (vitamin D3) 125 125 mcg PO QDAY 06/24 Unknown History mcg (5,000 unit) tablet omega 4-iqm-buc-fish oil 1,200 mg 1 cap PO DAILY 12/0912/09/24 History (144 mg-216 mg) capsule (Fish Oil) Allergy/AdvReac Type Severity Reaction Status Date / Time No Known Allergies Allergy Verified 12/09/24 09:15 Family History (Updated 06/24/24 @ 15:49 by Apryl Cook) Mother Diabetes Hypertension Thyroid disorder Alzheimer's disease Father Aortic aneurysm Surgical History (Updated 06/24/24 @ 15:46 by Apryl Cook) History of lymph node biopsy (~08/2020) History of lumpectomy of right breast (~08/2020) Hx of right breast biopsy Hx of colonoscopy Hx of tubal ligation Hx of appendectomy Hx of tonsillectomy S/P breast biopsy Social History (Updated 06/24/24 @ 15:47 by Apryl Cook) Smoking Status: Never smoker second hand exposure: No alcohol intake: current alcohol intake frequency: a few times a month Alcohol type: wine substance use type: does not use caffeine: Yes what type of physical activity do you participate in: aerobics frequency: 3-4 times per week Audit: Pertinent Findings Pertinent Findings EKG Perinent findings: June 13, 2024. Normal sinus rhythm. Left bundle branch block. Echo (EF%) pertinent findings: June 24, 2024. Ejection fraction 59%. Normal right ventricular systolic pressure at 32 mmHg. No aortic stenosis is noted. No significant valvular abnormalities. Recommendation Anesthesia Recommendation Anesthesia recommendation: OPTIMIZED for anesthesia
[2024-12-13] VITALS (9 sets, daily range): BP systolic 123–154; BP diastolic 53–87; PULSE 60–80; RESP 12–18; TEMP 36.6–37.2; O2SAT 94–99; BMI 29.2
[2024-12-13] MEDS: 0.9% Normal Saline (1000mL) 1,000 ML 15 ML IV (06:37)
--- NOTE | 2024-12-13 06:46 | PCM.PRE.AN2 ---
ASA Classification* ASA Classification ASA Classification: 2 Assessment & Plan Anesthesia* Anesthesia Assessment Anesthesia Assessment: Discussed sedation and/or anesthesia options, risks, benefits, and alternatives with patient/parents/legal guardian/POA. Questions invited. The patient/parents/legal guardian/POA seems to understand and agrees to proceed with anesthesia plan. Reviewed the physical assessment, medical history, allergy history and patient home medications list prior to surgery/procedure/anesthetic and documented any changes. Performed airway and anesthesia risk assessments. Anesthesia Type Anesthesia Type: General and Block Anesthesia Focused Assessment* Temperature: 99 F Pulse Rate: 60 Blood Pressure: 123/69 Respiratory Rate: 12 Pulse Ox: 99 Airway Assessment Mouth opens: >3 cm Mallampati Score: II Focused Labs Anesthesia Preop lab: CBC WBC 4.9 K/mm3 (4.4-11.0) 06/13/24 10:00 06/13/24 RBC 4.47 M/mm3 (4.2-5.4) 06/13/24 10:00 06/13/24 Hgb 12.8 g/dL (12.0-15.0) 06/13/24 10:00 06/13/24 Hct 39.7 % (37-47) 06/13/24 10:00 06/13/24 Plt Count 172 K/mm3 (150-450) 06/13/24 10:00 06/13/24 CHEMISTRY Potassium 3.9 mmol/L (3.5-5.1) 06/13/24 10:00 06/13/24 Sodium 142 mmol/L (136-145) 06/13/24 10:00 06/13/24 BUN 14 mg/dL (7-18) 06/13/24 10:00 06/13/24 Creatinine 0.84 mg/dL (0.55-1.02) 06/13/24 10:00 06/13/24 Glucose 131 mg/dL (74-106) H 06/13/24 10:00 06/13/24 COAG Pre-Assessment Diagnosis/Proposed Procedure Planned Operative Procedure(s): (R) Right foot first metatarsophalangeal joint fusion with hammertoe correction fo the second, third, fourth, and fifth digits. Right foot Tailors bunionectomy Anesthesia History Anesthesia History - calculation reviewer: Anesthesia History - calculation reviewer Hx Hospitalization No 12/09/24 09:25 Any Problems With Anesthesia No 12/09/24 09:25 Cholinesterase deficiency No 12/09/24 09:25 You/Your Family Experience No 12/09/24 09:25 fever (hyperthermia) with Relationship Recent Exposure to Contagious No 12/13/24 06:38 Disease Does patient have nerve No 12/09/24 09:25 stimulator Patient instructed to have device shut off --Does patient have Pacemaker No 12/13/24 06:38 or ICD? When Was Last Pacemaker Check QUESTION #4 FULL TEXT: You/Your Family Experience fever (hyperthermia) with Anesthesia Last Oral Intake Last Oral intake: Last Oral Intake NPO since 20:30 12/13/24 06:38 Meds taken in AM with sips of Yes 12/13/24 06:38 water? Meds patient instructed to levothyroxine 12/13/24 06:38 take am of surgery PONV PONV - calculation reviewer: PONV - calculation reviewer Female Yes 12/09/24 09:25 HX of Motion Sickness No 12/09/24 09:25 HX of N/V After Surgery No 12/09/24 09:25 Non-Smoker Yes 12/09/24 09:25 Duration of Surgery greater Yes 12/09/24 09:25 than 60 minutes Number of Risk Factors 3 12/09/24 09:25 PONV Score Moderate Risk 12/09/24 09:25 Height & Weight Height & Weight: Anesthesia: Height & Weight Height 5 ft 4 in 12/13/24 06:38 Weight: 77.4 kg 12/13/24 06:38 Body Mass Index (BMI) 29.2 12/13/24 06:38 Respiratory Assessment Respiratory Assessment - calculation reviewer: Respiratory Tract Infection Hx - calculation reviewer Hx Respiratory Tract Infection No 12/09/24 09:25 STOP Sleep Apnea STOP Sleep Apnea - calculation reviewer: STOP Sleep Apnea - calculation reviewer Hx Hypertension No 12/09/24 09:25 Hx Sleep Apnea No 12/09/24 09:25 CPAP BIPAP Do you snore loudly (louder No 12/09/24 09:25 than talking or can be heard Do you often feel tired/ No 12/09/24 09:25 fatigued/ sleepy during daytime? Has anyone observed you stop No 12/09/24 09:25 breathing during sleep? STOP Results Negative 12/09/24 09:25 QUESTION #5 FULL TEXT : Do you snore loudly (louder than talking or can be heard through closed doors)? 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 Specify any problems Hx of Preganancy in last 3 No 12/09/24 09:25 Months Nurse Filling Out Transfusion VCHRISTIN 12/09/24 09:25 & Questions: Date: 12/09/24 12/09/24 09:25 Time: :12/09/24 09:25 Patient unable to answer at this time (ie. confused, unrespo /Reproduction History /Reproductive History - calculation reviewer: /Reproductive Hx- calculation reviewer Hx Now Gestational Age (in weeks): EDC: Hx Hx Para Hx Section SAB Active Medications Active Medications: Current Medications Generic Name Dose Route Start Last Admin Trade Name Freq PRN Reason Stop Dose Admin Cefazolin Sodium 2 gm/ N/A 20 mls @ 400 mls/hr 12/13/24 07:30 IV 12/13/24 07:32 PREOP ONE Sodium Chloride 1,000 mls @ 15 mls/hr 12/13/24 06:20 12/13/24 06:37 IV 15 mls/hr .Q48H SUSAN Administration PFSH Medical History Wears glasses Post-menopausal Cancer History of steroid therapy Non-smoker History of echocardiogram Fatigue LBBB (left bundle branch block) Osteoporosis Invasive ductal carcinoma of right breast Abnormal mammogram Degenerative joint disease Arthritis Hypothyroidism Thyroid disease Home Medications ?Medication ?Instructions ?Recorded ?Last Taken ?Type denosumab 60 mg/mL subcutaneous 60 mg subcut [id number] 07/23/20 Unknown History syringe (Prolia) levothyroxine 88 mcg tablet 88 mcg PO DAILY 07/23/20 12/13/24 History (Synthroid) simvastatin 10 mg tablet 10 mg PO DAILY 07/23/20 Unknown History calcium carb-ergocalciferol (vit 1 tab PO DAILY 06/24/24 Unknown History D2) 600 mg calcium-200 unit tablet cholecalciferol (vitamin D3) 125 125 mcg PO QDAY 06/24/24 Unknown History mcg (5,000 unit) tablet omega 8-mhn-ubu-fish oil 1,200 mg 1 cap PO DAILY 12/09/24 12/09/24 History (144 mg-216 mg) capsule (Fish Oil) Allergy/AdvReac Type Severity Reaction Status Date / Time No Known Allergies Allergy Verified 12/13/24 06:38 Family History Mother Diabetes Hypertension Thyroid disorder Alzheimer's disease Father Aortic aneurysm Surgical History History of lymph node biopsy (~08/2020) History of lumpectomy of right breast (~08/2020) Hx of right breast biopsy Hx of colonoscopy Hx of tubal ligation Hx of appendectomy Hx of tonsillectomy S/P breast biopsy Social History Smoking Status: Never smoker second hand exposure: No alcohol intake: current alcohol intake frequency: a few times a month Alcohol type: wine substance use type: does not use caffeine: Yes what type of physical activity do you participate in: aerobics frequency: 3-4 times per week Review of Systems (Anesthesia) ROS Narrative System reviewed and no additional complaints, except as documented.
--- NOTE | 2024-12-13 07:05 | RAD_ITS ---
EXAM: EXAM DATE: 12/13/2024 10:40 am PROCEDURE: FOOT MIN 3 VIEWS CLINICAL HISTORY: PAIN COMPARISON: None TECHNIQUE: Intraoperative fluoroscopic spot views of the distal right foot. FINDINGS: Intraoperative fluoroscopic spot views obtain during surgical arthrodesis of the 1st metatarsal phalangeal joint and the distal 5th metatarsal. Please refer to the operative report for additional details. RAD/Foot min 3 Views IMPRESSION: Fluoroscopic spot views obtained for the purpose of right foot surgery. Please refer to the operative report for additional details. Reading Location: [facility]
[2024-12-13] MEDS: Cefazolin 2 GM in Syringe IV (07:46)
--- NOTE | 2024-12-13 10:03 | OP.PCM_ITS ---
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 First MPJ fusion right foot with [email or web address] 3 oh headless compression screw for interfragmentary compression dorsal neutralization plate with a straight [email or web address] locking plate 2. Second toe proximal interphalangeal joint arthroplasty with extensor tenotomy and metatarsal phalange joint capsulotomy, right foot 3. Third toe proximal interphalangeal joint arthroplasty 4. Fourth toe proximal interphalangeal joint arthroplasty 5. Derotational arthroplasty proximal interphalangeal joint right fifth toe 6. Tailor's bunionectomy, right foot via distal chevron osteotomy with 3 oh headless compression screw riveting machine operator tape control: Yes Packaging Assembler: garima bates Tasks completed by administrative assistant: Opening, Hemostasis: Tie and Hemostasis: Electrocautery Type of Anesthesia: General RN Documented Start/Stop Times: Operation Date: 12/13/24 07:30 Case Time Into Pre-Op 12/13/24 06:15 Anesthesia Start 12/13/24 07:37 Into Room 12/13/24 07:37 Procedure Start 12/13/24 08:01 Procedure Start Time: 07:59 Procedure Stop Time: 10:13 Select all DRAINS/GRAFTS/IMPLANTS that apply: Implanted device Implanted device details: [employer] plate x1, 2x3-0 headless compression screws Estimated Blood Loss: 30cc Specimen collected: No Description of surgery: Patient was brought back the operating placed complete supine position on operating table. Patient induced under general anesthesia. Patient received popliteal block preoperatively. Well-padded thigh tourniquet applied to right lower extremity. Right lower extremity was positioned and neck on external rotation. Right lower extremity scrubbed prepped draped using typical aseptic fashion. Once cleared by anesthesia right lower extremity was elevated exsanguinated tourniquet was inflated 300 mmHg. * First MPJ Fusion, Right Foot: * Indication: Hallux rigidus with pain and limited range of motion. * Procedure: A dorsal approach was used to expose the first metatarsophalangeal joint (MPJ). The joint was debrided, and all cartilaginous surfaces were removed. The joint was then prepared using reaming techniques. The articular surfaces were reamed to remove any remaining cartilage, exposing the subchondral bone. After reaming, the joint was thoroughly flushed with sterile saline to remove any debris. Subchondral drilling was then performed using a 2.0mm drill bit to create a microfracture pattern to promote healing. Care was taken during the drilling process to avoid injury to adjacent tendinous, neurological, and vascular structures. After the preparation of the joint, rectus alignment of the first MPJ was achieved. The first metatarsal and proximal phalanx were aligned in a neutral position, with a 0? frontal plane rotation, ensuring proper positioning. Additionally, rectus transverse alignment was confirmed, maintaining proper positioning of the metatarsal and phalanx in the transverse plane. The joint was stabilized with a [employer] 3.0mm headless compression screw for interfragmentary compression. A dorsal neutralization plate and a straight [employer] locking plate were placed for added security. The fusion was confirmed with intraoperative fluoroscopy. * Estimated Blood Loss (EBL): 30cc (for the entire procedure) * Complications: None * Second Toe Proximal Interphalangeal Joint (PIPJ) Arthroplasty with Extensor Tenotomy and Metatarsophalangeal Joint Capsulotomy, Right Foot: * Indication: Pain and deformity in the second toe PIPJ with restricted movement. * Procedure: The second toe was exposed through a dorsal incision. The PIP joint was excised, and an arthroplasty was performed. A tenotomy of the extensor te ndons was done to release any tension and correct the deformity. Additionally, a capsulotomy of the metatarsophalangeal joint was performed to allow for better alignment. The joint was reconstructed, and the toe was realigned. The proximal phalangeal head was resected using bone cutting forceps to achieve the arthroplasty. * EBL: 30cc * Complications: None * Third Toe Proximal Interphalangeal Joint (PIPJ) Arthroplasty, Right Foot: * Indication: Severe arthritis and deformity of the third toe. * Procedure: A similar approach was followed for the third toe, with dorsal exposure and arthroplasty of the PIP joint. The joint was excised, and the toe was realigned to address the deformity and restore function. The proximal phalangeal head was resected using bone cutting forceps to complete the arthroplasty. * EBL: 30cc * Complications: None * Fourth Toe Proximal Interphalangeal Joint (PIPJ) Arthroplasty, Right Foot: * Indication: Painful and arthritic fourth toe with limited mobility. * Procedure: The fourth toe was exposed dorsally, and the PIP joint was excised. Arthroplasty was performed to improve the joint's range of motion, and realignment was achieved. The proximal phalangeal head was resected with bone cutting forceps to facilitate the arthroplasty. * EBL: 30cc * Complications: None * Derotational Arthroplasty, Proximal Interphalangeal Joint, Right Fifth Toe: * Indication: Deformity and rotational misalignment of the fifth toe. * Procedure: A dorsolateral elliptical incisional approach was used, running from the distal medial aspect to the proximal lateral aspect of the fifth toe, to access and correct the rotational deformity. The approach was chosen to avoid injury to the extensor tendon and sural nerve. The soft tissues were carefully dissected to expose the proximal interphalangeal joint (PIPJ). The fifth toe was derotated by resecting the proximal phalangeal head using bone cutting forceps. The joint was then realigned to correct the rotational deformity. After resection and realignment, the toe was stabilized in the corrected position. * EBL: 30cc * Complications: None Tailor?s Bunionectomy, Right Foot via Distal Chevron Osteotomy with 3.0mm Headless Compression Screw: * Indication: Tailor?s bunion with prominence and pain over the lateral aspect of the fifth metatarsal head. * Procedure: A dorsolateral incisional approach was utilized to expose the fifth metatarsophalangeal joint (MPJ) while carefully avoiding the extensor tendon and the sural nerve. The lateral eminence of the fifth metatarsal was reduced, and the intermetatarsal angle between the fourth and fifth metatarsals was corrected, with a final angle of 4/5 noted. A distal chevron osteotomy was performed on the fifth metatarsal to correct the bunion deformity. The osteotomy site was stabilized using a 3.0mm headless compression screw to achieve appropriate alignment and secure the bone. DBM was applied to osteotomy site. * EBL: 30cc * Complications: None Thigh tourniquet right lower extremity was let down total time was an hour and 36 this was performed before incisional closure All incisions were flushed with copious normal sterile saline, closed with extensor tendon repair to digits 2 through 5 using over and over 3-0 Monocryl deep and subcutaneous closure with running interlocking 3-0 Monocryl skin closure performed with a combination of simple and horizontal mattress interrupted 4-0 nylon. Incisional sites dressed with Betadine Adaptic 4 x 4's Kerlix and a well-padded AO splint with foot and ankle held in rectus position. Surgical Findings: As dictated above Complications Complications: No
--- NOTE | 2024-12-13 11:36 | PCM.POST.ANE ---
Anesthesia: Postop Eval I Current Vital Signs Temperature: 98.3 F Pulse Rate: 76 Blood Pressure: 152/60 Respiratory Rate: 12 Pulse Ox: 94 Oxygen Delivery Method: Room Air Assessment Airway patent: Yes Spontaneous unlabored respirations: Yes Mental status: Awake and Calm nausea: No Vomiting: No Anesthesia Complication: No Fluid Hydration Crystalloid volume administer (ml): 1,300 Total IV fluid infused: 1,300 Progress Note Anesthesia document: Postop Eval 1 completed: Yes
--- NOTE | 2024-12-13 12:36 | POSTOPAN2_ITS ---
Anesthesia Postop Eval I Sum Postop Eval Completion status Anesthesia document: Postop Eval 1 completed: Yes Anesthesia Postop Eval I Summary Anesthesia Postop Eval I Summary: Anesthesia Postop Eval I: Assessment Summary Airway patent Yes 12/13/24 11:36 KELP OR SEAGRASS [email or web address] Spontaneous unlabored Yes 12/13/24 11:36 KELP OR SEAGRASS [email or web address].[email or web address] respirations Mental status Awake,Calm 12/13/24 11:36 KELP OR SEAGRASS [email or web address].TNES nausea No 12/13/24 11:36 KELP OR SEAGRASS [email or web address].[email or web address] Vomiting No 12/13/24 11:36 KELP OR SEAGRASS [email or web address].[email or web address] Anesthesia Postop Eval I: Fluid Summary Crystalloid volume administer 1,300 12/13/24 11:36 KELP OR SEAGRASS [email or web address].[email or web address] (ml) Colloids volume administered ( ml) Blood Product volume administered (ml) Total IV fluid infused 1,300 12/13/24 11:36 KELP OR SEAGRASS [email or web address].[email or web address] Anesthesia Postop Eval I: Summary Notes Anesthesia Complication No 12/13/24 11:36 KELP OR SEAGRASS [email or web address].[email or web address] Anesthesia Complication Comment: Post-operative progress note Anesthesia: Postop Eval II Evaluation Mental status: Awake Pain Level: 2 nausea: No Vomiting: No
--- NOTE | 2024-12-13 12:36 | PCM.POSTANE2 ---
Anesthesia Postop Eval I Sum Postop Eval Completion status Anesthesia document: Postop Eval 1 completed: Yes Anesthesia Postop Eval I Summary Anesthesia Postop Eval I Summary: Anesthesia Postop Eval I: Assessment Summary Airway patent Yes 12/13/24 11:36 GANG DRILL PRESS [email or web address] Spontaneous unlabored Yes 12/13/24 11:36 GANG DRILL PRESS [email or web address].[email or web address] respirations Mental status Awake,Calm 12/13/24 11:36 GANG DRILL PRESS [email or web address].[email or web address] nausea No 12/13/24 11:36 GANG DRILL PRESS [email or web address].[email or web address] Vomiting No 12/13/24 11:36 GANG DRILL PRESS [email or web address] Anesthesia Postop Eval I: Fluid Summary Crystalloid volume administer 1,300 12/13/24 11:36 GANG DRILL PRESS [email or web address].[email or web address] (ml) Colloids volume administered ( ml) Blood Product volume administered (ml) Total IV fluid infused 1,300 12/13/24 11:36 GANG DRILL PRESS [email or web address].[email or web address] Anesthesia Postop Eval I: Summary Notes Anesthesia Complication No 12/13/24 11:36 GANG DRILL PRESS [email or web address].[email or web address] Anesthesia Complication Comment: Post-operative progress note Anesthesia: Postop Eval II Evaluation Mental status: Awake Pain Level: 2 nausea: No Vomiting: No
== END 2024-12-13 12:50 | disposition home or self-care (01) ==
LOC: SDC 06:02 → AC 06:03
PROVIDERS: PCP Internal Medicine; Referring Provider Podiatrist; Visit Provider Podiatrist
PROC: (CPT 28292; principal; 2024-12-13 07:15)
DX: M20.11 Hallux valgus (acquired), right foot (principal); M20.41 Other hammer toe(s) (acquired), right foot; M21.621 Bunionette of right foot; M19.071 Primary osteoarthritis, right ankle and foot; M81.0 Age-related osteoporosis without current pathological fracture; E03.9 Hypothyroidism, unspecified; Z79.890 Hormone replacement therapy; Z79.899 Other long term (current) drug therapy
CPT/HCPCS: 28750; 28285 ×4; 28308; 64450; 73630; 76000; C1713; J2405